=== PATIENT | male | born 1975 | race Caucasian/White ===

== ENCOUNTER 2016-10-28 03:33 | Emergency (ER) | payer OTHER ==
[2016-10-28] MEDS ORDERED: Oxycodone/Acetaminophen 5/325 mg Tab PO STA (04:01)
--- NOTE | 2016-10-28 04:45 | C.PDOC ---
History Of Present Illness 41 y/o male presents to ED with c/o right ankle pain for 4 days. Patient states he began using the stationary bike 6 days ago and notes he may have sprained his ankle. Notes pain worsened yesterday, prompting visit. Denies trauma or change in sensation. Time Seen by Provider: 10/28/16 03:55 Chief Complaint (Nursing): Lower Extremity Problem/Injury History Per: Patient History/Exam Limitations: no limitations Onset/Duration Of Symptoms: Days Current Symptoms Are (Timing): Worse Recent travel outside of the [place]: No Past Medical History Reviewed: Historical Data, Nursing Documentation, Vital Signs Vital Signs: Last Vital Signs Temp 98.4 F 10/28/16 05:27 Pulse 85 10/28/16 05:27 Resp 18 10/28/16 05:27 BP 129/73 10/28/16 05:27 Pulse Ox 96 10/28/16 05:27 - Medical History PMH: Sleep Apnea Surgical History: Appendectomy Family History: States: Unknown Family Hx - Social History Hx Alcohol Use: No Hx Substance Use: No - Immunization History Hx Tetanus Toxoid Vaccination: Yes Hx Influenza Vaccination: Yes Hx Pneumococcal Vaccination: No Review Of Systems Constitutional: Negative for: Fever, Chills Respiratory: Negative for: Cough Gastrointestinal: Negative for: Nausea, Vomiting Musculoskeletal: Positive for: Other (right ankle pain) Skin: Negative for: Rash Neurological: Negative for: Weakness, Numbness Physical Exam - Physical Exam Appears: Non-toxic, No Acute Distress Skin: Normal Color, Warm, Dry Head: Atraumatic, Normacephalic Eye(s): bilateral: Normal Inspection, EOMI Nose: Normal Oral Mucosa: Moist Extremity: Normal ROM, Capillary Refill (< 2 sec. ), No Deformity, Other ( dorsal R foot/lateral ankle tenderness with diffuse swelling) Pulses: Left Dorsalis Pedis: Normal, Right Dorsalis Pedis: Normal Neurological/Psych: Oriented x3, Normal Speech, Normal Cognition, Normal Motor, Normal Sensation ED Course And Treatment O2 Sat by Pulse Oximetry: 97 (RA) Pulse Ox Interpretation: Normal - Other Rad x-ray foot and ankle X-Ray: Interpreted by Me Interpretation: no fracture or dislocation Progress Note: Treated with Percocet. X-rays ordered and reviewed, negative for fracture or dislocation. Stirrup splint applied by industrial maintenance technician. Instructed TUNDE and to follow up with ortho. Disposition - Disposition Referrals: Ariela Muñoz MD [Staff Provider] - Disposition: HOME/ ROUTINE Disposition Time: 04:43 Condition: STABLE Additional Instructions: Rest, ice and elevate the area. Followup with ortho in 1-2 days. Prescriptions: Naproxen [Naprosyn] 1 tab PO BID PRN #20 tab PRN Reason: Pain Instructions: Ankle Sprain (ED) - Clinical Impression Clinical Impression: Ankle sprain - PA / JIRA DEVELOPER / Resident Statement MD/DO has reviewed & agrees with the documentation as recorded. - Scribe Statement The provider has reviewed the documentation as recorded by the Charityibramiro Rider All medical record entries made by the Mando were at my direction and personally dictated by me. I have reviewed the chart and agree that the record accurately reflects my personal performance of the history, physical exam, medical decision making, and the department course for this patient. I have also personally directed, reviewed, and agree with the discharge instructions and disposition.
[2016-10-28 05:29] VITALS: BP 129/73; PULSE 85; RESP 18; TEMP 98.4
[2016-10-28 06:13] VITALS: O2SAT 97
--- NOTE | 2016-10-28 11:40 | RAD ---
Right ankle three views History: Trauma. Comparison: None available. Findings: Prominent lateral malleolar soft tissue swelling. No evidence of acute displaced fracture or dislocation. Ankle mortise maintained. Talar dome intact. Impression: Prominent lateral malleolar soft tissue swelling. If pain persists, consider MRI.
--- NOTE | 2016-10-28 11:43 | RAD ---
Right foot three views History: Trauma. Comparison: None available. Findings: Mild hallux valgus deformity. Curvilinear lucency at the medial head of the 2nd proximal phalanx may represent artifact and/or vessel. Clinical correlation. On the frontal view, mild lucency at the medial navicular bone may represent some focal osteopenia. Clinical correlation. Impression: Mild hallux valgus deformity. Curvilinear lucency at the medial head of the 2nd proximal phalanx may represent artifact and/or vessel. Clinical correlation. On the frontal view, mild lucency at the medial navicular bone may represent some focal osteopenia. Clinical correlation. If pain persists, consider MRI.
== END 2016-10-28 05:34 | disposition home or self-care (01) ==
LOC: C.ER 03:33
DX: S93.401A Sprain of unspecified ligament of right ankle, initial encounter (principal); X50.0XXA Overexertion from strenuous movement or load, initial encounter; Y93.A1 Activity, exercise machines primarily for cardiorespiratory conditioning; Y92.89 Other specified places as the place of occurrence of the external cause